=== PATIENT | female | born 1975 | race Caucasian/White ===

== ENCOUNTER → 2016-08-02 | Outpatient (CLI) | payer OTHER ==
[2015-06-13 14:25] VITALS: BP 107/59
--- NOTE | 2016-08-02 13:15 | RAD ---
Exam: PA and lateral chest radiograph History: Cough since June 05 she was near an active NO. Comparison: None. Findings: Cardiomediastinal silhouette is within normal limits for size. Bilateral lung dick are free of focal infiltrate. No pleural effusion is seen. Mild S-shaped scoliosis of the thoracic and visualized lumbar spine is seen. Impression: No acute cardiopulmonary process.
== END | disposition home or self-care (01) ==
LOC: DXRAD 12:54
DX: M41.84 Other forms of scoliosis, thoracic region (principal); R05 Cough; M41.86 Other forms of scoliosis, lumbar region
CPT/HCPCS: 71020